=== PATIENT | female | born 1965 | race Caucasian/White ===

== ENCOUNTER 2020-10-28 09:16 | Inpatient (IN) ==
[2020-10-28] MEDS ORDERED: 0.9 % Sodium Chloride 250 ML ONE ×2 (12:24→22:08)
[2020-10-28] MEDS ORDERED: Famotidine 20 MG/2 ML VIAL IVP ONE (13:44)
[2020-10-28] MEDS ORDERED: Acetaminophen IV 1,000 MG/100 ML INFUS..BTL IVPB ONE (13:45)
[2020-10-28] MEDS ORDERED: Pregabalin 50 MG CAPSULE PO ONE (13:45)
[2020-10-28] MEDS ORDERED: Ringers Solution, Lactated 1,000 ML IVC SCH ×2 (13:45→18:28)
[2020-10-28] MEDS ORDERED: Ethanol\\Acetic Acid\\Na Ace\\Ben 1,000 ML IRRIG.SOLN IR ONE ×2 (14:26→15:10)
[2020-10-28] MEDS ORDERED: *HR* Succinylcholine 200 MG/10 ML VIAL IVP ONE (14:33)
[2020-10-28] MEDS ORDERED: Lidocaine -MPF 4% 5 ML AMPUL ONE (14:33)
[2020-10-28] MEDS ORDERED: *HR* FentaNYL (PF) 100 MCG/2 ML VIAL ONE (14:33)
[2020-10-28] MEDS ORDERED: Ondansetron 4 MG/2 ML VIAL ONE (14:33)
[2020-10-28] MEDS ORDERED: *HR* Midazolam HCl 2 MG/2 ML VIAL ONE (14:33)
[2020-10-28] MEDS ORDERED: *HR* Propofol 200 MG/20 ML VIAL IVP ONE (14:33)
[2020-10-28] MEDS ORDERED: Lidocaine -MPF 2% 2 ML VIAL ONE ×2 (14:33)
[2020-10-28] MEDS ORDERED: Dexamethasone 4 MG/ML VIAL ONE (14:33)
[2020-10-28] MEDS ORDERED: ROPIVACAINE/PF/NS 0.25% 1 EACH SYRINGE INTRAART ONE (15:04)
[2020-10-28] MEDS ORDERED: Naloxone 0.4 MG/ML INJ IVP PRN ×2 (15:21→18:28)
[2020-10-28] MEDS ORDERED: Ondansetron 4 MG/2 ML VIAL IVP PRN (15:21)
[2020-10-28] MEDS ORDERED: *HR* FentaNYL (PF) 100 MCG/2 ML VIAL IVP PRN (15:21)
[2020-10-28] MEDS ORDERED: *HR* HYDROmorphone PF 0.5 MG/0.5 ML SYRINGE IVP PRN (15:21)
[2020-10-28] MEDS ORDERED: Tranexamic Acid 1,000 MG/10 ML VIAL ONE ×2 (15:49→15:51)
[2020-10-28] MEDS ORDERED: EPHEDrine 50 MG/ML VIAL ONE (15:54)
[2020-10-28] MEDS ORDERED: Povidone-Iodine 45 ML, Sodium Chloride IRRigation 1,000 ML IR ONE (16:10)
[2020-10-28] MEDS ORDERED: TOTAL JOINT MIXTURE (100ML) INTRAART ONE (16:10)
[2020-10-28] MEDS ORDERED: ceFAZolin 2,000 MG in Water for inj. (sterile) 20 ML IVP ONE (16:18)
[2020-10-28] MEDS ORDERED: Vancomycin 1,000 MG VIAL ONE (16:26)
[2020-10-28] MEDS ORDERED: CeFAZolin Syr 2,000MG/20 ML 2,000 MG/20 ML SYRINGE IVPB ONE (16:30)
[2020-10-28] MEDS ORDERED: *HR* PHENYLEPHRINE 1,000 MCG/10 ML SYRINGE IVP ONE (16:31)
[2020-10-28 17:50] LABS: Hematocrit 35.8 % (35.3-44.9); Hemoglobin 11.3 g/dL (11.5-15.4)
[2020-10-28] MEDS ORDERED: D5% in Water 1,000 ML IVC PRN (18:28)
[2020-10-28] MEDS ORDERED: Dextrose Gel 15 GM/37.5 ML TUBE PO PRN ×2 (18:28)
[2020-10-28] MEDS ORDERED: Sennosides 8.6 MG TABLET PO PRN (18:28)
[2020-10-28] MEDS ORDERED: *HR* Dextrose 50 % in Water (Vial) 50 ML VIAL IVP PRN (18:28)
[2020-10-28] MEDS ORDERED: *HR* Promethazine 25 MG/ML VIAL IM PRN (18:28)
[2020-10-28] MEDS ORDERED: MOM Conc 10 ML UD.LIQ PO PRN (18:28)
[2020-10-28] MEDS: Ascorbic Acid 500 MG TABLET PO SCH (18:48)
[2020-10-28] MEDS: Insulin LISPRO 300 UNITS/3 ML VIAL SQ SCH (18:55)
[2020-10-28] MEDS: HYDROcodone BIT/Homatropine 5 MG TABLET PO PRN (22:23)
[2020-10-28] MEDS: *HR* OxyCODONE Immed Rel 5 MG TABLET PO PRN (23:53)
[2020-10-29] MEDS: Insulin LISPRO 300 UNITS/3 ML VIAL SQ SCH ×5 (00:02→23:13)
[2020-10-29] MEDS: CeFAZolin 2 GM/120 ML BAG IVPB SCH ×2 (01:24→08:33)
[2020-10-29 01:59] LABS: Basophils % 0.1 %; Hematocrit 36.3 % (35.3-44.9); Hemoglobin 11.5 g/dL (11.5-15.4); Immature Granulocytes % 0.3 % (0-4); Lymphocytes # 0.6 K/mcL (0.6-4.6); Lymphocytes % 4.2 %; Mean Corpuscular HGB Conc 31.7 g/dL (31.6-35.5); Mean Corpuscular Hemoglobin 28.8 pg (28.0-33.3); Mean Corpuscular Volume 90.8 fL (83.0-100.0); Mean Platelet Volume 11.9 fL (9.4-12.4); Monocytes # 0.4 K/mcL (0.0-1.3); Monocytes % 2.5 %; Neutrophils # 13.6 K/mcL (1.6-8.9); Platelet Count 205 K/mcL (140-400); Red Cell Distribution Width 14.4 % (11.5-14.5); Segmented Neutrophils % 92.9 %; White Blood Count 14.7 K/mcL (4.3-11.1)
[2020-10-29 02:20] LABS: BUN/Creatinine Ratio 27 (6-26); Blood Urea Nitrogen 22 mg/dL (6-20); Calcium 8.6 mg/dL (8.6-10.3); Carbon Dioxide 20 mEq/L (23-29); Chloride 108 mEq/L (98-107); Glucose 228 mg/dL (70-105); Osmolality,Calculated 291 (280-300); Potassium 4.5 mEq/L (3.5-5.1); Sodium 135 mEq/L (136-145); eGFR For African Americans > 60 (> 60); eGFR For Non-African Americans > 60 (> 60)
[2020-10-29] MEDS: *HR* OxyCODONE Immed Rel 5 MG TABLET PO PRN ×4 (06:23→23:12)
[2020-10-29] MEDS: Budesonide/Formoterol 160/4.5 1 PUFF INH IH SCH ×2 (07:45→20:18)
[2020-10-29] MEDS: Tiotropium 18 MCG inhalation IH SCH ×2 (07:46→07:49)
[2020-10-29] MEDS: HYDROcodone BIT/Homatropine 5 MG TABLET PO PRN ×2 (08:31→16:15)
[2020-10-29] MEDS: Ascorbic Acid 500 MG TABLET PO SCH ×2 (08:31→16:15)
[2020-10-29] MEDS: Multivit/Ca/Min/Fe/FA 1 TAB TABLET PO SCH (08:31)
[2020-10-29] MEDS: Pregabalin 75 MG CAPSULE PO SCH ×2 (08:32→23:12)
[2020-10-29] MEDS: Aspirin Enteric Coated 81 MG Tablet PO SCH (12:54)
[2020-10-29] MEDS: Ondansetron 4 MG/2 ML VIAL IVP PRN (18:11)
[2020-10-30] MEDS: HYDROcodone BIT/Homatropine 5 MG TABLET PO PRN ×4 (01:16→16:49)
[2020-10-30 01:53] LABS: Basophils % 0.3 %; Eosinophils % 0.4 %; Hematocrit 32.5 % (35.3-44.9); Hemoglobin 10.5 g/dL (11.5-15.4); Immature Granulocytes % 0.3 % (0-4); Lymphocytes % 19.5 %; Mean Corpuscular HGB Conc 32.3 g/dL (31.6-35.5); Mean Corpuscular Volume 92.9 fL (83.0-100.0); Mean Platelet Volume 12.1 fL (9.4-12.4); Monocytes # 1.2 K/mcL (0.0-1.3); Monocytes % 11.4 %; Neutrophils # 7.1 K/mcL (1.6-8.9); Platelet Count 175 K/mcL (140-400); Red Cell Distribution Width 14.8 % (11.5-14.5); Segmented Neutrophils % 68.1 %; White Blood Count 10.4 K/mcL (4.3-11.1)
[2020-10-30 02:08] LABS: BUN/Creatinine Ratio 25 (6-26); Blood Urea Nitrogen 22 mg/dL (6-20); Carbon Dioxide 25 mEq/L (23-29); Chloride 103 mEq/L (98-107); Glucose 123 mg/dL (70-105); Osmolality,Calculated 285 (280-300); Potassium 4.1 mEq/L (3.5-5.1); Sodium 135 mEq/L (136-145); eGFR For African Americans > 60 (> 60); eGFR For Non-African Americans > 60 (> 60)
[2020-10-30] MEDS: *HR* OxyCODONE Immed Rel 5 MG TABLET PO PRN ×4 (04:05→21:52)
[2020-10-30] MEDS: Insulin LISPRO 300 UNITS/3 ML VIAL SQ SCH ×4 (07:48→22:15)
[2020-10-30] MEDS: Tiotropium 18 MCG inhalation IH SCH (08:54)
[2020-10-30] MEDS: Budesonide/Formoterol 160/4.5 1 PUFF INH IH SCH ×2 (08:54→19:59)
[2020-10-30] MEDS: Multivit/Ca/Min/Fe/FA 1 TAB TABLET PO SCH (09:27)
[2020-10-30] MEDS: Ascorbic Acid 500 MG TABLET PO SCH ×2 (09:28→16:49)
[2020-10-30] MEDS: Aspirin Enteric Coated 81 MG Tablet PO SCH (09:28)
[2020-10-30] MEDS: Pregabalin 75 MG CAPSULE PO SCH ×2 (09:29→21:52)
[2020-10-30] MEDS: Ondansetron 4 MG/2 ML VIAL IVP PRN (09:34)
[2020-10-31] MEDS ORDERED: Isovue-370 500 ML BOTTLE IVP ONE (00:22)
[2020-10-31 02:25] LABS: Basophils % 0.3 %; Eosinophils % 0.2 %; Hemoglobin 10.1 g/dL (11.5-15.4); Immature Granulocytes % 0.4 % (0-4); Lymphocytes # 1.2 K/mcL (0.6-4.6); Lymphocytes % 10.6 %; Mean Corpuscular HGB Conc 32.6 g/dL (31.6-35.5); Mean Corpuscular Hemoglobin 29.3 pg (28.0-33.3); Mean Corpuscular Volume 89.9 fL (83.0-100.0); Monocytes # 0.8 K/mcL (0.0-1.3); Monocytes % 6.4 %; Neutrophils # 9.6 K/mcL (1.6-8.9); Platelet Count 184 K/mcL (140-400); Red Blood Count 3.45 M/mcL (3.82-4.97); Red Cell Distribution Width 14.9 % (11.5-14.5); Segmented Neutrophils % 82.1 %; White Blood Count 11.6 K/mcL (4.3-11.1)
[2020-10-31 02:46] LABS: Albumin 3.4 g/dL (3.5-5.7); Albumin/Globulin Ratio 1.3 (1.1-2.2); Bilirubin,Total 0.6 mg/dL (0.3-1.0); Calcium 8.5 mg/dL (8.6-10.3); Globulin 2.6 g/dL (2.4-3.5); Magnesium 1.9 mg/dL (1.6-2.6); Phosphorous 2.2 mg/dL (2.7-4.5); Potassium 4.5 mEq/L (3.5-5.1)
[2020-10-31] MEDS ORDERED: 0.9 % Sodium Chloride 1,000 ML IVC ONE ×2 (03:49→06:55)
[2020-10-31] MEDS ORDERED: Azithromycin 500 MG in D5% in Water 250 ML IVPB SCH (04:00)
[2020-10-31 04:28] LABS: Adenovirus Not Detected (Not Detect); Coronavirus 229E Not Detected (Not Detect); Coronavirus HKU1 Not Detected (Not Detect); Coronavirus NL63 Not Detected (Not Detect); Coronavirus OC43 Not Detected (Not Detect)
[2020-10-31 04:29] LABS: Bordetella Pertussis Not Detected (Not Detect); Chlamydophila pneumoniae Not Detected (Not Detect); Human Metapneumovirus Not Detected (Not Detect); Human Rhinovirus/Enterovirus Not Detected (Not Detect); Influenza A Subtype 2009 H1 Not Detected (Not Detect); Influenza B Not Detected (Not Detect); Mycoplasma pneumoniae Not Detected (Not Detect); Parainfluenza Virus 1 Not Detected (Not Detect); Parainfluenza Virus 2 Not Detected (Not Detect); Parainfluenza Virus 3 Not Detected (Not Detect); Parainfluenza Virus 4 Not Detected (Not Detect); Respiratory Syncytial Virus Not Detected (Not Detect); SARS-CoV-2 Not Detected (Not Detect)
[2020-10-31 07:15] LABS: Bilirubin,Urine Negative (Negative); Blood,Urine Negative (Negative); Clarity,Urine Clear (Clear); Color,Urine Yellow (Yellow); Glucose,Urine (UA) Normal (Normal); Ketones,Urine Negative (Negative); Leukocyte Esterase,Urine Negative (Negative); Nitrite,Urine Negative (Negative); Protein,Urine 30 mg/dL (Neg-Trace); Specific Gravity,Urine > 1.030 (1.010-1.025); Squamous Epithelial Cell,Urine Moderate per hpf (None-Few); Urobilinogen,Urine Normal (Normal); WBC,Urine 0-3 per hpf (0-3)
[2020-10-31] MEDS: Budesonide/Formoterol 160/4.5 1 PUFF INH IH SCH ×2 (07:39→22:16)
[2020-10-31] MEDS: Tiotropium 18 MCG inhalation IH SCH (07:39)
[2020-10-31] MEDS ORDERED: Ringers Solution, Lactated 1,000 ML IVC SCH (07:45)
[2020-10-31] MEDS: Insulin LISPRO 300 UNITS/3 ML VIAL SQ SCH ×4 (08:16→20:39)
[2020-10-31] MEDS: Piperacillin/Tazobactam 3.375 GM in 0.9 % Sodium Chloride Mini Bag 100 ML IVPB SCH ×3 (08:23→23:17)
[2020-10-31] MEDS: Pregabalin 75 MG CAPSULE PO SCH ×2 (08:24→20:43)
[2020-10-31] MEDS: Ascorbic Acid 500 MG TABLET PO SCH ×2 (08:24→16:08)
[2020-10-31] MEDS: Aspirin Enteric Coated 81 MG Tablet PO SCH (08:24)
[2020-10-31] MEDS: Multivit/Ca/Min/Fe/FA 1 TAB TABLET PO SCH (08:24)
[2020-10-31] MEDS ORDERED: cefTRIAXone 1,000 MG in Water for inj. (sterile) 10 ML IVP SCH (09:00)
[2020-10-31] MEDS ORDERED: 0.9 % Sodium Chloride 500 ML IVC ONE (09:13)
[2020-10-31] MEDS: *HR* OxyCODONE Immed Rel 5 MG TABLET PO PRN ×2 (11:14→16:08)
[2020-10-31] MEDS: Ringers Solution, Lactated 1,000 ML IVC SCH ×2 (11:55→17:50)
[2020-10-31] MEDS: Albuterol 2.5 MG/3 ML NEBULIZER IH SCH ×2 (16:11→22:16)
[2020-10-31] MEDS: HYDROcodone BIT/Homatropine 5 MG TABLET PO PRN (23:17)
[2020-11-01] MEDS: HYDROcodone BIT/Homatropine 5 MG TABLET PO PRN (04:08)
[2020-11-01] MEDS: Albuterol 2.5 MG/3 ML NEBULIZER IH SCH ×2 (04:30→10:32)
[2020-11-01 07:08] LABS: Basophils % 0.3 %; Eosinophils # 0.3 K/mcL (0.0-0.6); Eosinophils % 2.2 %; Hematocrit 26.5 % (35.3-44.9); Immature Granulocytes % 0.9 % (0-4); Lymphocytes # 1.9 K/mcL (0.6-4.6); Lymphocytes % 14.7 %; Mean Corpuscular HGB Conc 30.9 g/dL (31.6-35.5); Mean Corpuscular Hemoglobin 28.8 pg (28.0-33.3); Mean Platelet Volume 12.4 fL (9.4-12.4); Monocytes # 0.9 K/mcL (0.0-1.3); Monocytes % 6.9 %; Neutrophils # 9.5 K/mcL (1.6-8.9); Platelet Count 165 K/mcL (140-400); Red Blood Count 2.85 M/mcL (3.82-4.97); Red Cell Distribution Width 14.8 % (11.5-14.5); White Blood Count 12.6 K/mcL (4.3-11.1)
[2020-11-01 07:30] LABS: BUN/Creatinine Ratio 24 (6-26); Blood Urea Nitrogen 26 mg/dL (6-20); Calcium 8.5 mg/dL (8.6-10.3); Carbon Dioxide 21 mEq/L (23-29); Chloride 107 mEq/L (98-107); Glucose 117 mg/dL (70-105); Hemoglobin 8.2 g/dL (11.5-15.4); Osmolality,Calculated 284 (280-300); Phosphorous 2.2 mg/dL (2.7-4.5); Potassium 4.4 mEq/L (3.5-5.1); Sodium 134 mEq/L (136-145); eGFR For African Americans > 60 (> 60); eGFR For Non-African Americans 53 (> 60)
[2020-11-01] MEDS: Piperacillin/Tazobactam 3.375 GM in 0.9 % Sodium Chloride Mini Bag 100 ML IVPB SCH (08:07)
[2020-11-01] MEDS: Pregabalin 75 MG CAPSULE PO SCH (08:09)
[2020-11-01] MEDS: Aspirin Enteric Coated 81 MG Tablet PO SCH (08:09)
[2020-11-01] MEDS: Multivit/Ca/Min/Fe/FA 1 TAB TABLET PO SCH (08:09)
[2020-11-01] MEDS: Insulin LISPRO 300 UNITS/3 ML VIAL SQ SCH ×2 (08:10→12:25)
[2020-11-01] MEDS: Ascorbic Acid 500 MG TABLET PO SCH (08:10)
[2020-11-01] MEDS: Tiotropium 18 MCG inhalation IH SCH (10:33)
[2020-11-01] MEDS: Budesonide/Formoterol 160/4.5 1 PUFF INH IH SCH (10:33)
[2020-11-01 11:57] VITALS: BP 102/50
== END 2020-11-01 14:21 | disposition home health service (06) | DRG 461 ==
LOC: 3NENU 09:16 → SAMDAY 09:16 → 3NENU 10:57 → SUATTDRO 10-29 18:14
PROVIDERS: ADMIT Orthopaedic Surgery; ATTEND Internal Medicine

== ENCOUNTER 2021-08-02 11:30 | Inpatient (IN) ==
[2021-08-02] MEDS ORDERED: Aspirin 81 MG TAB.CHEW PO ONE (11:42)
[2021-08-02] MEDS ORDERED: Isovue-370 500 ML BOTTLE IVP ONE (11:52)
[2021-08-02 13:20] LABS: INR 1.1; Prothrombin Time 12.4 Seconds (9.4-12.1)
[2021-08-02 13:22] LABS: Activated Partial Thrombo Time 30.4 Seconds (26.0-36.0)
[2021-08-02 13:35] LABS: BUN/Creatinine Ratio 8 (6-26); Blood Urea Nitrogen 31 mg/dL (6-20); Calcium 8.8 mg/dL (8.6-10.3); Carbon Dioxide 22 mEq/L (23-29); Chloride 103 mEq/L (98-107); Glucose 108 mg/dL (70-105); Osmolality,Calculated 287 (280-300); Potassium 4.7 mEq/L (3.5-5.1); Sodium 135 mEq/L (136-145); eGFR For African Americans 15 (> 60); eGFR For Non-African Americans 12 (> 60)
[2021-08-02 14:05] LABS: Troponin I < 0.03 ng/mL (< 0.04)
[2021-08-02] MEDS ORDERED: cefTRIAXone 1,000 MG in 0.9 % Sodium Chloride Mini Bag 100 ML IVPB ONE (14:35)
[2021-08-02] MEDS ORDERED: Azithromycin 500 MG in 0.9 % Sodium Chloride 250 ML IVPB ONE (14:35)
[2021-08-02 15:46] LABS: Basophils % 0.3 %; Eosinophils # 0.1 K/mcL (0.0-0.6); Eosinophils % 0.6 %; Hematocrit 22.9 % (35.3-44.9); Hemoglobin 7.3 g/dL (11.5-15.4); Immature Granulocytes % 0.6 % (0-4); Lymphocytes # 0.4 K/mcL (0.6-4.6); Lymphocytes % 3.8 %; Mean Corpuscular HGB Conc 31.9 g/dL (31.6-35.5); Mean Corpuscular Hemoglobin 30.4 pg (28.0-33.3); Mean Corpuscular Volume 95.4 fL (83.0-100.0); Mean Platelet Volume 11.5 fL (9.4-12.4); Monocytes # 0.2 K/mcL (0.0-1.3); Monocytes % 2.1 %; Platelet Count 233 K/mcL (140-400); Red Cell Distribution Width 13.6 % (11.5-14.5); Segmented Neutrophils % 92.6 %; White Blood Count 9.7 K/mcL (4.3-11.1)
[2021-08-02] MEDS ORDERED: Naloxone 0.4 MG/ML INJ IVP PRN (17:29)
[2021-08-02] MEDS ORDERED: 0.9 % Sodium Chloride 1,000 ML IVC SCH (17:45)
[2021-08-02 18:25] LABS: Bilirubin,Urine Negative (Negative); Blood,Urine Negative (Negative); Clarity,Urine Clear (Clear); Color,Urine Colorless (Yellow); Glucose,Urine (UA) Normal (Normal); Ketones,Urine Negative (Negative); Leukocyte Esterase,Urine Negative (Negative); Nitrite,Urine Negative (Negative); Protein,Urine Negative (Neg-Trace); Specific Gravity,Urine 1.007 (1.010-1.025); Urobilinogen,Urine Normal (Normal)
[2021-08-02 19:23] LABS: Sodium, Urine 33.2 mEq/L
[2021-08-02] MEDS: *HR* Heparin 5,000 UNIT/ML VIAL SQ SCH (19:47)
[2021-08-02] MEDS ORDERED: 0.9 % Sodium Chloride 250 ML ONE (21:27)
[2021-08-02] MEDS: *HR* HYDROcodone/Acet 5/325 mg TABLET PO PRN (21:31)
[2021-08-02] MEDS: Budesonide/Formoterol 160/4.5 1 PUFF INH IH SCH (22:38)
[2021-08-03] MEDS: 0.9 % Sodium Chloride 1,000 ML IVC SCH ×2 (00:56→09:38)
[2021-08-03 02:19] LABS: Hematocrit 24.5 % (35.3-44.9); Hemoglobin 7.9 g/dL (11.5-15.4); Mean Corpuscular HGB Conc 32.2 g/dL (31.6-35.5); Mean Corpuscular Hemoglobin 29.7 pg (28.0-33.3); Mean Corpuscular Volume 92.1 fL (83.0-100.0); Mean Platelet Volume 11.3 fL (9.4-12.4); Platelet Count 211 K/mcL (140-400); Red Blood Count 2.66 M/mcL (3.82-4.97); Red Cell Distribution Width 13.7 % (11.5-14.5); White Blood Count 9.9 K/mcL (4.3-11.1)
[2021-08-03 02:43] LABS: Calcium 8.3 mg/dL (8.6-10.3); Magnesium 1.8 mg/dL (1.6-2.6); Phosphorous 4.1 mg/dL (2.7-4.5); Potassium 4.4 mEq/L (3.5-5.1)
[2021-08-03] MEDS: *HR* Heparin 5,000 UNIT/ML VIAL SQ SCH ×2 (05:11→16:42)
[2021-08-03] MEDS: *HR* HYDROcodone/Acet 5/325 mg TABLET PO PRN (05:11)
[2021-08-03] MEDS: Budesonide/Formoterol 160/4.5 1 PUFF INH IH SCH ×2 (07:44→22:59)
[2021-08-03] MEDS: Aspirin Enteric Coated 81 MG Tablet PO SCH (09:32)
[2021-08-03] MEDS: cefTRIAXone 1,000 MG in Water for inj. (sterile) 10 ML IVP SCH (09:32)
[2021-08-03] MEDS: Ipratropium/Albuterol Neb 3 ML IH PRN ×2 (16:32→22:58)
[2021-08-03] MEDS: Tiotropium 10 INH DOSE IH SCH (18:20)
[2021-08-03] MEDS: Melatonin 3 MG TABLET PO PRN (19:45)
[2021-08-04] MEDS: *HR* Heparin 5,000 UNIT/ML VIAL SQ SCH ×2 (05:46→16:33)
[2021-08-04 06:06] LABS: Hematocrit 24.6 % (35.3-44.9)
[2021-08-04 06:08] LABS: VBG HCO3 21 mEq/L (21-27); VBG PCO2 37 mmHg (41-51); VBG PH 7.36 pH Units (7.32-7.42); VBG PO2 114 mmHg (25-50)
[2021-08-04 06:15] LABS: INR 1.1; Prothrombin Time 13.1 Seconds (9.4-12.1)
[2021-08-04 06:25] LABS: Calcium 8.5 mg/dL (8.6-10.3); Iron 13 mcg/dL (50-170)
[2021-08-04 06:53] LABS: Folate 10.6 ng/mL (3.0-16.0)
[2021-08-04] MEDS ORDERED: Cyanocobalamin (B-12) 1,000 MCG/ML VIAL SQ ONE (07:35)
[2021-08-04] MEDS: cefTRIAXone 1,000 MG in Water for inj. (sterile) 10 ML IVP SCH (09:17)
[2021-08-04] MEDS: Cyanocobalamin (B-12) 1,000 MCG TABLET PO SCH (09:19)
[2021-08-04] MEDS: Aspirin Enteric Coated 81 MG Tablet PO SCH (09:19)
[2021-08-04] MEDS: Ipratropium/Albuterol Neb 3 ML IH PRN ×2 (11:03→23:17)
[2021-08-04] MEDS: Tiotropium 10 INH DOSE IH SCH ×2 (11:03→18:38)
[2021-08-04] MEDS: Budesonide/Formoterol 160/4.5 1 PUFF INH IH SCH ×2 (11:03→18:37)
[2021-08-04] MEDS ORDERED: Albuterol 2.5 MG/3 ML NEBULIZER IH PRN (18:21)
[2021-08-04] MEDS: Melatonin 3 MG TABLET PO PRN (22:35)
[2021-08-05] MEDS: *HR* HYDROcodone/Acet 5/325 mg TABLET PO PRN ×2 (03:47→19:23)
[2021-08-05 04:52] LABS: Calcium 8.6 mg/dL (8.6-10.3); Potassium 4.5 mEq/L (3.5-5.1)
[2021-08-05 05:52] LABS: % Iron Saturation 5 % (15-50); Transferrin 200 mg/dL (203-362)
[2021-08-05] MEDS: *HR* Heparin 5,000 UNIT/ML VIAL SQ SCH ×2 (06:03→18:51)
[2021-08-05] MEDS: Budesonide/Formoterol 160/4.5 1 PUFF INH IH SCH ×2 (07:37→21:17)
[2021-08-05] MEDS: Aspirin Enteric Coated 81 MG Tablet PO SCH (07:53)
[2021-08-05] MEDS: Cyanocobalamin (B-12) 1,000 MCG TABLET PO SCH (07:53)
[2021-08-05] MEDS: cefTRIAXone 1,000 MG in Water for inj. (sterile) 10 ML IVP SCH (07:54)
[2021-08-05] MEDS ORDERED: amLODIPine 5 MG TABLET PO SCH (10:00)
[2021-08-05] MEDS: amLODIPine 5 MG TABLET PO SCH (12:39)
[2021-08-05] MEDS: Tiotropium 10 INH DOSE IH SCH (21:18)
[2021-08-05] MEDS: Melatonin 3 MG TABLET PO PRN (23:52)
[2021-08-06] MEDS: *HR* Heparin 5,000 UNIT/ML VIAL SQ SCH ×2 (05:24→18:20)
[2021-08-06 06:31] LABS: Hematocrit 23.1 % (35.3-44.9); Hemoglobin 7.5 g/dL (11.5-15.4); Mean Corpuscular HGB Conc 32.5 g/dL (31.6-35.5); Mean Corpuscular Hemoglobin 30.4 pg (28.0-33.3); Mean Corpuscular Volume 93.5 fL (83.0-100.0); Mean Platelet Volume 10.9 fL (9.4-12.4); Platelet Count 273 K/mcL (140-400); Red Blood Count 2.47 M/mcL (3.82-4.97); Red Cell Distribution Width 14.1 % (11.5-14.5); White Blood Count 9.1 K/mcL (4.3-11.1)
[2021-08-06 06:51] LABS: Albumin 3.3 g/dL (3.5-5.7); Albumin/Globulin Ratio 1.1 (1.1-2.2); Bilirubin,Direct 0.1 mg/dL (0.0-0.2); Bilirubin,Indirect 0.3 mg/dL (0.0-1.0); Bilirubin,Total 0.4 mg/dL (0.3-1.0); Phosphorous 4.6 mg/dL (2.7-4.5); Total Protein 6.3 g/dL (6.4-8.9)
[2021-08-06 07:37] LABS: Calcium 8.8 mg/dL (8.6-10.3); Potassium 4.5 mEq/L (3.5-5.1)
[2021-08-06] MEDS: cefTRIAXone 1,000 MG in Water for inj. (sterile) 10 ML IVP SCH (08:23)
[2021-08-06] MEDS: Cyanocobalamin (B-12) 1,000 MCG TABLET PO SCH (08:23)
[2021-08-06] MEDS: Aspirin Enteric Coated 81 MG Tablet PO SCH (08:23)
[2021-08-06] MEDS: amLODIPine 5 MG TABLET PO SCH (08:23)
[2021-08-06] MEDS: Ondansetron 4 MG/2 ML VIAL IVP PRN ×2 (08:24→16:27)
[2021-08-06] MEDS: Budesonide/Formoterol 160/4.5 1 PUFF INH IH SCH ×2 (10:54→19:43)
[2021-08-06] MEDS: Tiotropium 10 INH DOSE IH SCH (19:43)
[2021-08-06] MEDS: Melatonin 3 MG TABLET PO PRN (21:04)
[2021-08-06] MEDS: *HR* HYDROcodone/Acet 5/325 mg TABLET PO PRN (21:04)
[2021-08-07 03:04] LABS: Calcium 8.8 mg/dL (8.6-10.3); Potassium 4.1 mEq/L (3.5-5.1)
[2021-08-07] MEDS: Ondansetron 4 MG/2 ML VIAL IVP PRN ×2 (04:43→23:04)
[2021-08-07] MEDS: *HR* Heparin 5,000 UNIT/ML VIAL SQ SCH ×2 (04:44→17:46)
[2021-08-07] MEDS: Budesonide/Formoterol 160/4.5 1 PUFF INH IH SCH ×2 (07:10→20:01)
[2021-08-07] MEDS: Cyanocobalamin (B-12) 1,000 MCG TABLET PO SCH (09:04)
[2021-08-07] MEDS: Pregabalin 75 MG CAPSULE PO SCH ×2 (09:04→20:55)
[2021-08-07] MEDS ORDERED: GI Cocktail 40 ML EACH PO ONE (09:04)
[2021-08-07] MEDS: Aspirin Enteric Coated 81 MG Tablet PO SCH (09:04)
[2021-08-07] MEDS: amLODIPine 5 MG TABLET PO SCH (09:05)
[2021-08-07] MEDS: Ringers Solution, Lactated 1,000 ML IVC SCH ×2 (11:55→20:55)
[2021-08-07] MEDS: Tiotropium 10 INH DOSE IH SCH (20:01)
[2021-08-07] MEDS: Melatonin 3 MG TABLET PO PRN (20:55)
[2021-08-08 03:45] VITALS: TEMP 97.9
[2021-08-08] MEDS: *HR* Heparin 5,000 UNIT/ML VIAL SQ SCH (04:30)
[2021-08-08] MEDS: Ringers Solution, Lactated 1,000 ML IVC SCH (04:35)
[2021-08-08 05:10] LABS: Hematocrit 23.2 % (35.3-44.9); Hemoglobin 7.4 g/dL (11.5-15.4); Mean Corpuscular HGB Conc 31.9 g/dL (31.6-35.5); Mean Corpuscular Hemoglobin 29.5 pg (28.0-33.3); Mean Corpuscular Volume 92.4 fL (83.0-100.0); Mean Platelet Volume 10.6 fL (9.4-12.4); Platelet Count 308 K/mcL (140-400); Red Blood Count 2.51 M/mcL (3.82-4.97); Red Cell Distribution Width 13.6 % (11.5-14.5); White Blood Count 7.6 K/mcL (4.3-11.1)
[2021-08-08 05:30] LABS: Calcium 8.7 mg/dL (8.6-10.3); Phosphorous 4.5 mg/dL (2.7-4.5); Potassium 3.6 mEq/L (3.5-5.1)
[2021-08-08 07:21] VITALS: BP 136/81; PULSE 68
[2021-08-08] MEDS: Budesonide/Formoterol 160/4.5 1 PUFF INH IH SCH (07:35)
[2021-08-08] MEDS: amLODIPine 5 MG TABLET PO SCH (08:32)
[2021-08-08] MEDS: Aspirin Enteric Coated 81 MG Tablet PO SCH (08:33)
[2021-08-08] MEDS: Cyanocobalamin (B-12) 1,000 MCG TABLET PO SCH (08:33)
[2021-08-08] MEDS: Pregabalin 75 MG CAPSULE PO SCH (08:33)
[2021-08-08 11:00] VITALS: O2SAT 96
== END 2021-08-08 17:07 | disposition home or self-care (01) | DRG 682 ==
LOC: 3ANU 11:30 → EMEROOARM 11:30 → 2ANU 16:46 → SUATTDRO 18:17 → 2ANU 18:46
PROVIDERS: ADMIT Internal Medicine; ATTEND Internal Medicine

== ENCOUNTER 2022-08-02 05:37 | Inpatient (IN) ==
[2022-08-02] MEDS ORDERED: Famotidine 20 MG/2 ML VIAL IVP ONE ×2 (07:52→09:00)
[2022-08-02] MEDS ORDERED: Acetaminophen IV 1,000 MG/100 ML BAG IVPB ONE ×2 (07:52→09:00)
[2022-08-02] MEDS ORDERED: *HR* HYDROmorphone PF 0.5 MG/0.5 ML SYRINGE IVP PRN (07:53)
[2022-08-02] MEDS ORDERED: *HR* FentaNYL (PF) 100 MCG/2 ML VIAL IVP PRN (07:53)
[2022-08-02] MEDS ORDERED: *HR* OxyCODONE Immed Rel 5 MG TABLET PO PRN (07:53)
[2022-08-02] MEDS ORDERED: Ondansetron 4 MG/2 ML VIAL IVP PRN ×2 (07:53→16:08)
[2022-08-02] MEDS ORDERED: CeFAZolin Syr 2,000MG/20 ML 2,000 MG/20 ML SYRINGE IVPB ONE ×2 (07:54→08:12)
[2022-08-02] MEDS ORDERED: Ringers Solution, Lactated 1,000 ML IVC SCH (08:00)
[2022-08-02] MEDS ORDERED: Celecoxib 200 MG CAPSULE PO ONE (08:11)
[2022-08-02] MEDS ORDERED: Pregabalin 75 MG CAPSULE PO ONE (09:00)
[2022-08-02] MEDS ORDERED: Vancomycin 1,250 MG/262.5 ML IV.SOLN IVPB ONE ×2 (09:00→21:00)
[2022-08-02] MEDS ORDERED: Povidone-Iodine 45 ML, Sodium Chloride IRRigation 1,000 ML IR ONE (09:45)
[2022-08-02] MEDS ORDERED: *HR* Midazolam HCl 2 MG/2 ML VIAL ONE (11:04)
[2022-08-02] MEDS ORDERED: *HR* FentaNYL (PF) 100 MCG/2 ML VIAL ONE (11:04)
[2022-08-02] MEDS ORDERED: *HR* Propofol 200 MG/20 ML VIAL IVP ONE (11:05)
[2022-08-02] MEDS ORDERED: *HR* Succinylcholine 200 MG/10 ML VIAL IVP ONE (11:07)
[2022-08-02] MEDS ORDERED: Lidocaine HCL 4 ML Topical Solution (Laryng-O-Jet Kit Sterile Pak) TP ONE (11:08)
[2022-08-02] MEDS ORDERED: Tranexamic Acid 1,000 MG/10 ML VIAL ONE (11:28)
[2022-08-02] MEDS ORDERED: Ondansetron 4 MG/2 ML VIAL ONE (11:28)
[2022-08-02] MEDS ORDERED: Ketamine HCL *QUVA* 50mg (1mL) SYRINGE ONE (11:33)
[2022-08-02] MEDS ORDERED: *HR* Rocuronium Bromide 50 MG/5 ML VIAL ONE ×2 (11:33→11:38)
[2022-08-02] MEDS ORDERED: EPHEDrine 50 MG/ML VIAL ONE ×2 (11:37→14:02)
[2022-08-02] MEDS ORDERED: Sugammadex Sodium 200 MG/2 ML VIAL IV ONE (12:32)
[2022-08-02] MEDS ORDERED: Ketorolac 30 MG/ML VIAL ONE (12:32)
[2022-08-02] MEDS ORDERED: *HR* HYDROMORPHONE 2 MG/ML VIAL ONE (12:33)
[2022-08-02] MEDS ORDERED: MOM Conc 10 ML UD.LIQ PO PRN (16:08)
[2022-08-02] MEDS ORDERED: *HR* HYDROmorphone (PF) 1 MG/ML SYRINGE IVP PRN (16:08)
[2022-08-02] MEDS ORDERED: Naloxone 0.4 MG/ML INJ IVP PRN (16:08)
[2022-08-02] MEDS ORDERED: Sennosides 8.6 MG TABLET PO PRN (16:08)
[2022-08-02] MEDS: CeFAZolin 2 GM/120 ML BAG IVPB SCH ×2 (18:31→22:56)
[2022-08-02] MEDS: Ascorbic Acid 500 MG TABLET PO SCH (18:32)
[2022-08-02] MEDS: Ketorolac 30 MG/ML VIAL IVP SCH (18:32)
[2022-08-02] MEDS: *HR* OxyCODONE Immed Rel 5 MG TABLET PO PRN ×2 (18:32→22:55)
[2022-08-02] MEDS: Budesonide/Formoterol 160/4.5 1 PUFF INH IH SCH (20:12)
[2022-08-02] MEDS: Pregabalin 50 MG CAPSULE PO SCH (20:50)
[2022-08-03] MEDS: Ketorolac 30 MG/ML VIAL IVP SCH ×4 (00:36→18:00)
[2022-08-03 04:37] LABS: Basophils % 0.2 %; Hematocrit 30.2 % (35.3-44.9); Hemoglobin 9.6 g/dL (11.5-15.4); Immature Granulocytes % 0.5 % (0-4); Lymphocytes # 0.9 K/mcL (0.6-4.6); Lymphocytes % 8.8 %; Mean Corpuscular HGB Conc 31.8 g/dL (31.6-35.5); Mean Corpuscular Hemoglobin 29.8 pg (28.0-33.3); Mean Corpuscular Volume 93.8 fL (83.0-100.0); Mean Platelet Volume 10.8 fL (9.4-12.4); Monocytes # 0.5 K/mcL (0.0-1.3); Monocytes % 4.4 %; Neutrophils # 8.9 K/mcL (1.6-8.9); Platelet Count 254 K/mcL (140-400); Red Blood Count 3.22 M/mcL (3.82-4.97); Red Cell Distribution Width 13.8 % (11.5-14.5); Segmented Neutrophils % 86.1 %; White Blood Count 10.3 K/mcL (4.3-11.1)
[2022-08-03 04:53] LABS: Calcium 9.2 mg/dL (8.6-10.3); Potassium 4.4 mEq/L (3.5-5.1)
[2022-08-03] MEDS: *HR* OxyCODONE Immed Rel 5 MG TABLET PO PRN ×4 (05:16→20:31)
[2022-08-03] MEDS ORDERED: Celecoxib 200 MG CAPSULE PO ONE (07:53)
[2022-08-03] MEDS ORDERED: NON-FORMULARY MEDICATION 1 EACH EACH (Pantoprazole Sodium [Protonix] 40 MG Tablet.Dr) PO SCH (09:00)
[2022-08-03] MEDS: Budesonide/Formoterol 160/4.5 1 PUFF INH IH SCH ×2 (10:29→20:42)
[2022-08-03] MEDS: Tiotropium 10 INH DOSE IH SCH (10:29)
[2022-08-03] MEDS: Ascorbic Acid 500 MG TABLET PO SCH ×2 (11:19→17:58)
[2022-08-03] MEDS: Pregabalin 50 MG CAPSULE PO SCH ×2 (11:19→20:31)
[2022-08-03] MEDS: Multivit/Ca/Min/Fe/FA 1 TAB TABLET PO SCH (11:20)
[2022-08-03] MEDS: amLODIPine 5 MG TABLET PO SCH (11:36)
[2022-08-03] MEDS: Aspirin Enteric Coated 325 MG Tablet PO SCH ×2 (15:08→20:31)
[2022-08-03] MEDS: Ringers Solution, Lactated 1,000 ML IVC SCH (20:32)
[2022-08-04] MEDS: *HR* OxyCODONE Immed Rel 5 MG TABLET PO PRN ×4 (00:17→21:46)
[2022-08-04] MEDS: Ketorolac 30 MG/ML VIAL IVP SCH ×5 (00:17→23:56)
[2022-08-04] MEDS: Budesonide/Formoterol 160/4.5 1 PUFF INH IH SCH ×2 (07:39→21:39)
[2022-08-04] MEDS: Tiotropium 10 INH DOSE IH SCH (07:39)
[2022-08-04] MEDS: Pregabalin 50 MG CAPSULE PO SCH ×2 (10:23→21:40)
[2022-08-04] MEDS: Ascorbic Acid 500 MG TABLET PO SCH ×2 (10:23→16:12)
[2022-08-04] MEDS: Multivit/Ca/Min/Fe/FA 1 TAB TABLET PO SCH (10:23)
[2022-08-04] MEDS: Aspirin Enteric Coated 325 MG Tablet PO SCH ×2 (10:24→21:39)
[2022-08-04] MEDS: amLODIPine 5 MG TABLET PO SCH (10:24)
[2022-08-04 10:25] LABS: Calcium 8.8 mg/dL (8.6-10.3); Potassium 3.5 mEq/L (3.5-5.1)
[2022-08-04 10:34] LABS: Basophils # 0.1 K/mcL (0.0-0.2); Basophils % 0.6 %; Eosinophils # 0.1 K/mcL (0.0-0.6); Eosinophils % 0.8 %; Hematocrit 26.1 % (35.3-44.9); Hemoglobin 8.5 g/dL (11.5-15.4); Immature Granulocytes % 0.6 % (0-4); Lymphocytes # 2.6 K/mcL (0.6-4.6); Lymphocytes % 24.3 %; Mean Corpuscular HGB Conc 32.6 g/dL (31.6-35.5); Mean Corpuscular Hemoglobin 30.4 pg (28.0-33.3); Mean Corpuscular Volume 93.2 fL (83.0-100.0); Mean Platelet Volume 11.3 fL (9.4-12.4); Monocytes # 1.1 K/mcL (0.0-1.3); Monocytes % 9.9 %; Neutrophils # 6.9 K/mcL (1.6-8.9); Platelet Count 238 K/mcL (140-400); Red Cell Distribution Width 14.3 % (11.5-14.5); Segmented Neutrophils % 63.8 %; White Blood Count 10.9 K/mcL (4.3-11.1)
[2022-08-05] MEDS: Ketorolac 30 MG/ML VIAL IVP SCH ×3 (06:28→16:55)
[2022-08-05] MEDS: Tiotropium 10 INH DOSE IH SCH (07:56)
[2022-08-05] MEDS: Budesonide/Formoterol 160/4.5 1 PUFF INH IH SCH ×2 (07:56→22:04)
[2022-08-05] MEDS: Multivit/Ca/Min/Fe/FA 1 TAB TABLET PO SCH (09:58)
[2022-08-05] MEDS: Aspirin Enteric Coated 325 MG Tablet PO SCH ×2 (09:58→22:17)
[2022-08-05] MEDS: Ascorbic Acid 500 MG TABLET PO SCH ×2 (09:58→16:54)
[2022-08-05] MEDS: Pregabalin 50 MG CAPSULE PO SCH ×2 (10:23→22:17)
[2022-08-05] MEDS: amLODIPine 5 MG TABLET PO SCH (10:23)
[2022-08-05] MEDS: *HR* OxyCODONE Immed Rel 5 MG TABLET PO PRN ×2 (12:21→22:17)
[2022-08-06] MEDS: Ketorolac 30 MG/ML VIAL IVP SCH ×4 (00:20→16:36)
[2022-08-06] MEDS: *HR* OxyCODONE Immed Rel 5 MG TABLET PO PRN ×3 (04:43→20:47)
[2022-08-06] MEDS: Aspirin Enteric Coated 325 MG Tablet PO SCH ×2 (09:46→20:47)
[2022-08-06] MEDS: Ascorbic Acid 500 MG TABLET PO SCH ×2 (09:46→16:35)
[2022-08-06] MEDS: Multivit/Ca/Min/Fe/FA 1 TAB TABLET PO SCH (09:46)
[2022-08-06] MEDS: amLODIPine 5 MG TABLET PO SCH (09:46)
[2022-08-06] MEDS: Pregabalin 50 MG CAPSULE PO SCH ×2 (09:47→20:48)
[2022-08-06] MEDS: Budesonide/Formoterol 160/4.5 1 PUFF INH IH SCH ×2 (10:44→21:00)
[2022-08-06] MEDS: Tiotropium 10 INH DOSE IH SCH (10:44)
[2022-08-06] MEDS: Ringers Solution, Lactated 1,000 ML IVC SCH (11:43)
[2022-08-07] MEDS: Ketorolac 30 MG/ML VIAL IVP SCH ×2 (00:56→06:57)
[2022-08-07] MEDS: *HR* OxyCODONE Immed Rel 5 MG TABLET PO PRN ×4 (04:22→23:18)
[2022-08-07 08:32] LABS: Basophils # 0.1 K/mcL (0.0-0.2); Basophils % 0.6 %; Eosinophils # 0.5 K/mcL (0.0-0.6); Eosinophils % 6.7 %; Hematocrit 25.3 % (35.3-44.9); Immature Granulocytes % 0.9 % (0-4); Lymphocytes # 2.3 K/mcL (0.6-4.6); Mean Corpuscular HGB Conc 31.6 g/dL (31.6-35.5); Mean Corpuscular Hemoglobin 29.2 pg (28.0-33.3); Mean Corpuscular Volume 92.3 fL (83.0-100.0); Mean Platelet Volume 10.9 fL (9.4-12.4); Monocytes # 0.7 K/mcL (0.0-1.3); Neutrophils # 4.2 K/mcL (1.6-8.9); Platelet Count 285 K/mcL (140-400); Red Blood Count 2.74 M/mcL (3.82-4.97); Red Cell Distribution Width 14.4 % (11.5-14.5); Segmented Neutrophils % 53.8 %; White Blood Count 7.9 K/mcL (4.3-11.1)
[2022-08-07 08:47] LABS: Calcium 9.1 mg/dL (8.6-10.3); Potassium 4.8 mEq/L (3.5-5.1)
[2022-08-07] MEDS: Budesonide/Formoterol 160/4.5 1 PUFF INH IH SCH ×2 (10:20→22:43)
[2022-08-07] MEDS: Tiotropium 10 INH DOSE IH SCH (10:20)
[2022-08-07] MEDS: Multivit/Ca/Min/Fe/FA 1 TAB TABLET PO SCH (10:52)
[2022-08-07] MEDS: Pregabalin 50 MG CAPSULE PO SCH ×2 (10:52→20:38)
[2022-08-07] MEDS: Aspirin Enteric Coated 325 MG Tablet PO SCH ×2 (10:52→20:38)
[2022-08-07] MEDS: Ascorbic Acid 500 MG TABLET PO SCH ×2 (10:55→18:13)
[2022-08-07] MEDS: Ringers Solution, Lactated 1,000 ML IVC SCH ×3 (10:58→18:14)
[2022-08-07] MEDS: amLODIPine 5 MG TABLET PO SCH (10:58)
[2022-08-08] MEDS: Multivit/Ca/Min/Fe/FA 1 TAB TABLET PO SCH (08:17)
[2022-08-08] MEDS: Pregabalin 50 MG CAPSULE PO SCH (08:17)
[2022-08-08] MEDS: Aspirin Enteric Coated 325 MG Tablet PO SCH (08:17)
[2022-08-08] MEDS: Ascorbic Acid 500 MG TABLET PO SCH (08:17)
[2022-08-08] MEDS: amLODIPine 5 MG TABLET PO SCH (08:17)
[2022-08-08 10:39] VITALS: BP 93/59; PULSE 71; TEMP 98.1; O2SAT 96
[2022-08-08] MEDS: Budesonide/Formoterol 160/4.5 1 PUFF INH IH SCH (10:44)
[2022-08-08] MEDS: Tiotropium 10 INH DOSE IH SCH (10:44)
[2022-08-08] MEDS: *HR* OxyCODONE Immed Rel 5 MG TABLET PO PRN (15:21)
== END 2022-08-08 17:30 | disposition home health service (06) | DRG 467 ==
LOC: SDCAOSI 05:37 → 4WAOSI 16:02
PROVIDERS: ADMIT Orthopaedic Surgery; ATTEND Orthopaedic Surgery